=== PATIENT | female | born 2005 | race Caucasian/White ===

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

== ENCOUNTER 2023-08-09 06:07 | Day surgery (SDC) | payer OTHER ==
[~2023-08-09] VITALS: Ht 154.9 cm; Wt 71.8 kg
[~2023-08-09 06:07] MED LIST changes: +AMPICILLIN SOD/SULBACTAM SOD 3 GM in D5W MINI-BAG PLUS 100 ML IV ONE; +IBUP80TA; -ISOVUE-300 61% 100ML VIAL As Ordered ONE; +LEVO1TAB40; +OXYB5TAB11 PO; +RISATAB3; -ceFAZolin SOD 2 GM in IV 1 EA IV ONE
[2023-08-09] MEDS ORDERED: LR 1,000 ML IV SCH (06:30)
[2023-08-09] MEDS ORDERED: SUGAMMADEX SODIUM 500 MG/5 ML VIAL (BRIDION) As Ordered ONE (06:55)
[2023-08-09] MEDS ORDERED: propofoL 200 MG/20 ML VIAL As Ordered ONE (06:55)
[2023-08-09] MEDS ORDERED: LIDOCAINE 2% 100MG/5ML SDV (FOR ANES.) As Ordered ONE (06:55)
[2023-08-09] MEDS ORDERED: ONDANSETRON 4MG 2ML VIAL As Ordered ONE (06:55)
[2023-08-09] MEDS ORDERED: ROCURONIUM BROMIDE 50MG/5ML VIAL As Ordered ONE (06:55)
[2023-08-09] MEDS ORDERED: fentaNYL 100 MCG/2 ML INJECTION As Ordered ONE (07:03)
[2023-08-09] MEDS ORDERED: MIDAZOLAM INJ 2MG/2ML VIAL As Ordered ONE (07:03)
[2023-08-09] MEDS ORDERED: OXYMETAZOLINE 0.05% NASAL SPRAY (AFRIN) As Ordered ONE (07:09)
[2023-08-09] MEDS ORDERED: LIDOCAINE 2% W/ EPINEPHRINE 1.7 ML DENTAL INJ As Ordered ONE (07:13)
[2023-08-09] MEDS ORDERED: ACETAMINOPHEN 1000MG 100ML IV BAG As Ordered ONE ×2 (07:46→09:15)
[2023-08-09] MEDS ORDERED: ESMOLOL INJ 100MG/10ML VIAL As Ordered ONE (07:58)
[2023-08-09] MEDS ORDERED: BACITRACIN OINTMENT 30GM TUBE As Ordered ONE (08:32)
[2023-08-09] MEDS ORDERED: ONDANSETRON 4MG 2ML VIAL IV PRN (08:40)
[2023-08-09] MEDS ORDERED: MORPHINE 2 MG/ML 1ML VIAL IV PRN (08:40)
[2023-08-09] MEDS ORDERED: oxyCODONE 5MG TAB PO PRN (08:40)
[2023-08-09] MEDS ORDERED: fentaNYL 100 MCG/2 ML INJECTION IV PRN (08:40)
[2023-08-09 10:50] VITALS: BP 144/105; TEMP 97.2; O2SAT 96
== END 2023-08-09 11:06 | disposition home or self-care (01) ==
LOC: M SDC 06:07
PROVIDERS: ATTEND Dentist
DX: K02.9 Dental caries, unspecified (principal); K01.1 Impacted teeth; F40.232 Fear of other medical care
CPT/HCPCS: 81025; 88300; C9290; D7210; D9223; J0131; J1100; J1805; J2250; J2405; J3010

== ENCOUNTER → 2024-01-30 | Outpatient (CLI) | payer OTHER ==
[~2024-01-30] MED LIST changes: -AMPICILLIN SOD/SULBACTAM SOD 3 GM in D5W MINI-BAG PLUS 100 ML IV ONE; -OXYB5TAB11 PO; +OXYB5TAB14 PO
== END ==
LOC: M WUC 15:32
PROVIDERS: ATTEND Student in an Organized Health Care Education/Training Program
DX: M25.531 Pain in right wrist (principal)

== ENCOUNTER → 2024-04-24 | Outpatient (REF) | payer OTHER | LOC: M LAB REF 16:24 | PROVIDERS: ATTEND Physician Assistant Medical | DX: J02.9 Acute pharyngitis, unspecified (principal) ==